=== PATIENT | male | born 1980 | race Caucasian/White ===

== ENCOUNTER 2018-02-10 17:50 | Inpatient (IN) | payer OTHER ==
[~2018-02-10] VITALS: Ht 182.9 cm; Wt 80.3 kg
--- NOTE | 2018-02-10 19:07 | NUR ---
PATIENT DIRECT ADMIT FOR DR HICKMAN. IN TO ROOM TO CHECK PATIENT IN. PATIENT APPEARS IN NO DISTRESS. BREATHING EVEN/UNLABORED. PATIENT A&O. PATIENT REPORT RUQ ABD PAIN STARTED THIS AM. SUDDEN ONSET OF PAIN THAT WOKE HIM UP AT ABOUT 4 AM.PAIN IS CONSTANT WITH NO RADIATION. REPORT PAIN 01/20. DENIES N/V/D. LAST BM THIS AM. BOWEL TONE ACTIVE IN ALL 4 QUADRANTS. RUQ TENDER TO PALPATION. PATIENT DENIES ANY SIMILAR SYMPTOMS IN THE PAST. REPORTS NO ALLERGIES, HX OF HERNIA SURGERY AND MINISCUS REPAIR IN THE PAST. PATIENT APPEARS IN NO DISTRESS. IV STARTED AND FLUID (LR) STARTED AT 125ML/HR. INFORMED PATIENT ABOUT PAIN MED AVAILABILITY, PATIENT DENIES THE NEED FOR IT AT THIS TIME. CALL LIGHT IN REACH.
--- NOTE | 2018-02-10 19:20 | NUR ---
RECEIVED BEDSIDE REPORT FROM MADAN RN. PT IN BED WITH AT BEDSIDE. REPORTS 5/10 PAIN RUQ. REPORTS THIS TOLERABLE AND REFUSES PAIN MEDICATION AT THIS TIME. LR @ [address] CALL LIGHT WITHIN REACH, REOPRTS NO OTHER NEEDS AT THIS TIME
--- NOTE | 2018-02-10 21:13 | NUR ---
VITALS DONE AND CHARTED. I&OS CHECKING LATER, HE HAS NOT GONE SINCE HE CAME TO THE FLOOR. BEDSIDE TABLE AND CALL LIGHT WITHIN REACH.
--- NOTE | 2018-02-10 22:00 | NUR ---
ASSESSMENT COMPLETED, MEDICATION ADMINISTERED. PT REPORTS PAIN 5/10 TOLERABLE AT THIS TIME AND REFUSES PAIN MEDICATION. REPOSITIONED FOR COMFORT. LUNGS CLEAR, BOWEL TONES ACTIVE, HEART SOUNDS REGULAR, PULSES +3 X4, PT A/O. NO N/V. CALL LIGHT WITHIN REACH. REPORTS NOO THER NEEDS AT THIS TIME.
--- NOTE | 2018-02-11 00:01 | NUR ---
PT IS PLACED ON NPO STATUS AT THIS TIME. EDUCATION COMPLETED. CALL LIGHT WITHIN REACH.
--- NOTE | 2018-02-11 02:15 | NUR ---
VITALS AND I&OS DONE AND CHARTED. BEDSIDE TABLE AND CALL LIGHT WITHIN REACH.
--- NOTE | 2018-02-11 02:35 | NUR ---
ASSESSMENT COMPLETED. NO CHANGES. NPO AT THIS TIME. CALL LIGHT WITHIN REACH. PAIN 5/10- REPORTED TOLERABLE.
--- NOTE | 2018-02-11 04:00 | NUR ---
PT ON AND OFF SLEEPING. AT BEDSIDE. REPORTS PAIN 5/10. NO NEEDS AT THIS TIME. CALL LIGHT WITHIN REACH. LR @ 85.
--- NOTE | 2018-02-11 05:41 | NUR ---
VITALS AND I&OS DONE AND CHARTED. GARBAGES EMPTIED. BEDSIDE TABLE AND CALL LIGHT WITHIN REACH. PT COMPLAINS OF IV HURTING. I INFORMED HIS RN RADHIKA.
--- NOTE | 2018-02-11 07:41 | NUR ---
RECEIVED BEDSIDE REPORT FROM RADHIKA TRUONG. ALL QUESTIONS ANSWERED. WHITE BOARD UPDATED. SIGNIFICANT OTHER AT BEDSIDE. PAIN 5/10 IN ABDOMEN. LR INFUSING AT 85ML/HR.
--- NOTE | 2018-02-11 07:54 | NUR ---
PT PREPARING FOR PROCEDURE NOW. NPO SINCE MIDNIGHT. PATIENT COMPLETING WIPE DOWN NOW INDEPENDENTLY. WILL ADMINISTER HEPARIN AND PEPCID THIS MORNING PRIOR TO SURGERY.
--- NOTE | 2018-02-11 08:15 | NUR ---
PATIENT LEAVING FOR SURGERY SOON.
--- NOTE | 2018-02-11 10:46 | NUR ---
02/11/18 Tristen6 Sumi Obrien 1033 PT ARRIVED WITH MASK ON AT 6L. PT MOVED ARMS AND ICHING NOSE. PT REACTIVE, RESP EVEN AND UNLABORED. PT REORINETED TO PACU.
--- NOTE | 2018-02-11 10:55 | HP ---
[facility] [address] [place], [place] [address] Signed ADMISSION DATE: 02/10/2018 REASON FOR ADMISSION: Acute calculous cholecystitis. 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 Approximately 4 in the morning, he had rather severe right subcostal pain that was unrelenting and worsened over time. He was thoroughly evaluated by [facility], who had suspicions of cholecystitis. Lab studies were obtained and an ultrasound was obtained later in the day. This confirmed a single large gallstones and findings consistent with acute calculous cholecystitis. On that basis, I was called and he is admitted directly to the hospital for consideration of further management and care. PAST MEDICAL HISTORY: Rather unremarkable. He takes no medications on a daily basis and has never had abdominal surgery. He has had inguinal hernia repair in the past and lower extremity orthopedic surgery, but no implantation of joint. SOCIAL HISTORY: He is and has a grade school age children. REVIEW OF SYSTEMS: He denies any shortness of breath or chest pain. He has had no dysphagia or dysuria. He has not eaten or drank anything since this morning. He is reasonably comfortable while lying in bed, but quite uncomfortable up and about and walking. PHYSICAL EXAMINATION: GENERAL: Well-developed and well-nourished white man, who looks healthy overall. HEENT: Mucous membranes are slightly dry. Trachea is midline. CHEST: Clear. HEART: Regular without murmur. ABDOMEN: Nondistended and reasonably flat. There is tenderness in right subcostal area, but no mass. There is no ascites. EXTREMITIES: Show no clubbing, cyanosis, or edema. LABORATORY DATA: Show a normal Chem profile. Lipase is pending. CBC shows a white count of 6.5, Electronically Signed By: DILIP HCIKMAN MD 02/11/18 1055 PATIENT NAME: MARIA GUADALUPE FELDER HISTORY AND PHYSICAL DATE OF : 76 REPORT #: [id number] PHYSICIAN: DILIP HICKMAN MD PCP: GRACE COCHRAN PA-C REPORT IS CONFIDENTIAL AND NOT TO BE RELEASED WITHOUT AUTHORIZATION [facility] [address] [place], [place] [address] Signed hematocrit 50.6, platelets 236,000. Urinalysis is normal. I have reviewed the images from the ultrasound and reviewed the report as well. There is a single large somewhat oblong gallstone, visible thickening of the gallbladder wall was noted. It is not excessively thick, however. ASSESSMENT: He has clinical evidence of acute cholecystitis. Ultrasound confirming gallstones. There is no sign of liver enzyme elevation. I discussed with him and his the pathophysiology of this problem and recommendation of treatment to include cholecystectomy preferred by laparoscopic approach. The risks of bleeding, infection, bile duct injury, need for open procedure and other unforeseen complications were reviewed in detail. He understands and wished to proceed. For tonight, I will pursue intravenous fluid resuscitation, parenteral pain medication. We will allow some clear liquids for comfort sake, but no oral intake. Otherwise, so as to avoid instigating any further episode of biliary colic or worsening of his symptoms of cholecystitis. He has been given gallbladder owners manual and so forth and he and his wished to proceed as we have described. MD JAMIE Cochran/FLORENCIO /[id number] cc: Grace Cochran PA-C Copies: GRACE COCHRAN PA-C ~ Electronically Signed By: DILIP HICKMAN MD 02/11/18 1055 PATIENT NAME: MARIA GUADALUPE FELDER HISTORY AND PHYSICAL DATE OF : 76 REPORT #: [id number] PHYSICIAN: DILIP HICKMAN MD PCP: GRACE COCHRAN PA-C REPORT IS CONFIDENTIAL AND NOT TO BE RELEASED WITHOUT AUTHORIZATION
--- NOTE | 2018-02-11 11:50 | NUR ---
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 IN ROOM, PATIENT IN GOOD SPIRITS AND JOKING WITH CNAS. PATIENT HAS NOT ORDERED LAUNCH, AND STATES, "I'M THINKING ABOUT IT" JUICE AND FRESH ICEWATER GIVEN. CALL LIGHT INRE ACH NO OTHER NEEDS
[2018-02-11] MEDS ORDERED: IBUPROFEN600 MG PO (13:19)
[2018-02-11] MEDS ORDERED: MAPAP325 MG PO (13:20)
[2018-02-11] MEDS ORDERED: OXYCODON-ACETA1 EAC2 PO (13:20)
--- NOTE | 2018-02-12 16:00 | OR ---
[facility] [address] [place], [place] [address] Signed DATE OF OPERATION: 02/11/2018 SURGEON: Dilip Hickman MD PREOPERATIVE DIAGNOSIS: Acute calculous cholecystitis. POSTOPERATIVE DIAGNOSES: Acute calculous cholecystitis and pigmented papilliform skin lesion at umbilicus. PROCEDURES: 1. Laparoscopic cholecystectomy with intraoperative cholangiogram. 2. Surgeon-directed fluoroscopy. 3. Excision of umbilical skin lesion. ANESTHESIA: General endotracheal ( Siddhartha Gustafson CRNA) and local 0.25% Marcaine with epinephrine. INDICATION: This 37-year-old white man presented to [facility] yesterday with at least 12 hours of persistent right subcostal pain. He has been having problems for the past 4 weeks, one where another including vague abdominal pain and fatigue. Evaluation yesterday included a CBC and a Chem profile, which were normal, but an ultrasound of the gallbladder was performed confirming acute calculous cholecystitis. He has been fluid resuscitated given intravenous antibiotics, parenteral pain medication so forth and is now to undergo cholecystectomy preferred by laparoscopic approach. The risks of bleeding, infection, bile duct injury, need for other indicated procedures, failure to cure the problem, and other unforeseen complications were reviewed in detail. He understands and wished to proceed. FINDINGS: The gallbladder was subacutely inflamed. It was distended. There was a slightly enlarged pericholecystic lymph node noted. The liver itself was normal. Cholangiogram was normal. The gallbladder once opened showed a single large gallstone that was dark in color and chronic and subacute inflammatory change of the mucosa. DESCRIPTION OF PROCEDURE: The patient was brought to the operating room, given a general endotracheal anesthetic. Preoperative antibiotic Ancef had been given previously. Subcutaneous insulin had been administered and sequential compression device stockings were used. After satisfactory Electronically Signed By: DILIP HICKMAN MD 02/12/[address] [facility] PATIENT NAME: MARIA GUADALUPE FELDER OPERATIVE REPORT DATE OF : 76 REPORT #: [id number] PHYSICIAN: DILIP HICKMAN MD PCP: GRACE COCHRAN PA-C REPORT IS CONFIDENTIAL AND NOT TO BE RELEASED WITHOUT AUTHORIZATION [facility] [address] [place], [place] [address] Signed general endotracheal anesthesia, the abdomen was prepared with a chlorhexidine solution and draped sterilely. An infraumbilical incision was made. In the region of the infraumbilical area, was a pigmented papillary lesion less than half a centimeter in size, but nevertheless of note. This was excised and passed for pathology. An incision was made in usual configuration. Dissection carried through the subcutaneous tissue and blunt dissection undertaken and ultimately the abdomen entered using open Carolina cannula technique. Pneumoperitoneum was achieved to a level of 14 mmHg with carbon dioxide gas through the Carolina cannula. A 30-degree angled laparoscope was passed into the abdomen and intraabdominal inspection undertaken showing a distended acutely inflamed gallbladder. The liver appeared normal. Three additional trocars were placed in usual configuration in the subxiphoid, right midclavicular, and right anterior axillary line. The gallbladder was elevated cephalad and retracted laterally and using blunt and electrocautery dissection, the triangle of Calot was dissected free. A somewhat enlarged pericholecystic lymph node was noted. This was mostly a sign of inflammation. It was certainly not neoplastic in appearance. When the cystic duct was fully dissected free, a clip was applied across the gallbladder cystic duct junction. A transverse choledochotomy was made in the cystic duct. Using an Kidd type cholangiocatheter, intraoperative cholangiography was undertaken showing free flow of contrast in the biliary tree with prompt emptying into the duodenum. Retrograde filling of the proximal biliary tree was notably normal. The catheter was removed and the cystic duct was triply clipped and divided. The gallbladder was dissected free in a retrograde fashion using electrocautery. The gallbladder was not entered, but the gallbladder was placed in an endobag just as same and withdrawn through the infraumbilical port site under direct visualization without problem. The gallbladder was opened on the back table and found to have a single large dark somewhat oval gallstone and subacute inflammation of the mucosa. There was no sign of neoplasm. Irrigation was undertaken in subhepatic space. Excess irrigation fluid was suctioned free. The trocars were removed under direct visualization showing no sign of bleeding. The infraumbilical fascial incision was reapproximated with interrupted 0 Vicryl suture. All wounds were copiously irrigated with saline solution and 10 mL of 0.25% Marcaine with epinephrine was injected locally into the trocar sites. The skin was closed with interrupted 3-0 Vicryl. Steri-Strips were applied. The patient was ultimately extubated and transferred to recovery in good condition having suffered no complications. Sponge, needle, and instrument counts reported as correct x3. Dilip Hickman MD Electronically Signed By: DILIP HICKMAN MD 02/12/18 1600 PATIENT NAME: MARIA GUADALUPE FELDER OPERATIVE REPORT DATE OF : 76 REPORT #: [id number] PHYSICIAN: DILIP HICKMAN MD PCP: GRACE COCHRAN PA-C REPORT IS CONFIDENTIAL AND NOT TO BE RELEASED WITHOUT AUTHORIZATION [facility] [address] [facility] [address] Signed /FLORENCIO /[id number] cc: Grace Cochran PA-C Copies: GRACE COCHRAN PA-C ~ Electronically Signed By: DILIP HICKMAN MD 02/12/18 1600 PATIENT NAME: MARIA GUADALUPE FELDER OPERATIVE REPORT DATE OF : 76 REPORT #: [id number] PHYSICIAN: DILIP HICKMAN MD PCP: GRACE COCHRAN PA-C REPORT IS CONFIDENTIAL AND NOT TO BE RELEASED WITHOUT AUTHORIZATION
== END 2018-02-11 13:45 | disposition home or self-care (01) | DRG 419 ==
LOC: MS 17:50
PROVIDERS: ADMIT Surgery
PROC: BF101ZZ Fluoroscopy of Bile Ducts using Low Osmolar Contrast (ICD-10-PCS; 2018-02-11)
PROC: 0HB7XZZ Excision of Abdomen Skin, External Approach (ICD-10-PCS; 2018-02-11)
PROC: 0FT44ZZ Resection of Gallbladder, Percutaneous Endoscopic Approach (ICD-10-PCS; principal; 2018-02-11 10:00)
DX: K80.12 Calculus of gallbladder with acute and chronic cholecystitis without obstruction (principal); L98.8 Other specified disorders of the skin and subcutaneous tissue
CPT/HCPCS: 00790; 74300; J0690; J1644; J1885; J2405; J2704; J3010; J7120; Q9967

== ENCOUNTER 2025-07-19 06:51 | Day surgery (SDC) | payer OTHER ==
[~2025-07-19] VITALS: Ht 182.9 cm; Wt 84.0 kg
[~2025-07-19 06:51] MED LIST: IBUPROFEN600 MG PO; LACTATED RINGER'S 1,000 ML IV SCH; MAPAP325 MG PO; OXYCODON-ACETA1 EAC2 PO
[2025-07-19] MEDS ORDERED: LIDOCAINE HCL 1% 5 ML SDV INJ ONE (07:00)
[2025-07-19] MEDS ORDERED: IBLOOD GLUCOSE TEST STRIP 1 EA TEST VI PRN (07:00)
[2025-07-19 07:01] VITALS: BP 131/79
[2025-07-19] MEDS ORDERED: LIDOCAINE HCL 2% 5 ML SDV ONE (10:35)
--- NOTE | 2025-07-19 10:52 | NUR ---
07/19/25 1052 Swati Ryan 1038 PT ARRIVED IN PACU SLEEPY. ABD SOFT. 1050 PT AWAKE AND TALKING TO STAFF. NO C/O'S.
[2025-07-19 10:59] VITALS: BP 129/95
--- NOTE | 2025-07-23 12:15 | PATH ---
[facility] [address] [facility] [place], [place] [address] Signed SPECIMEN(S): A PROXIMAL ASCENDING COLON POLYP SPECIMEN(S): B RANDOM TRANSVERSE BIOPSY SPECIMEN(S): C RANDOM TRANSVERSE BIOPSY SPECIMEN(S): D HEPATIC FLEXURE COLON POLYP SPECIMEN(S): E DESCENDING COLON BIOPSY SPECIMEN SOURCE: A. PROXIMAL ASCENDING COLON POLYP B. RANDOM TRANSVERSE BIOPSY C. RANDOM TRANSVERSE BIOPSY D. HEPATIC FLEXURE COLON POLYP E. DESCENDING COLON BIOPSY CLINICAL HISTORY: Diarrhea, post-polyps A) polyp, B) right transverse biopsy, C) left transverse biopsy, D) polyp, E) biopsy FINAL PATHOLOGIC DIAGNOSIS: A. Proximal ascending colon polyp: - Tubular adenoma (two fragments). B. Random transverse biopsy (right side): - Benign colonic mucosa, negative for pathologic inflammation. C. Random transverse biopsy (left side): - Benign colonic mucosa, negative for pathologic inflammation. D. Hepatic flexure colon polyp: - Tubular adenoma (two fragments). E. Descending colon biopsy: - Hyperplastic polyp (multiple fragments). [facility] MICROSCOPIC EXAMINATION: Histologic sections of all submitted blocks are examined by light microscopy. These findings, together with the gross examination, support the pathologic diagnosis. GROSS DESCRIPTION: A. The specimen, labeled and designated "Ainsley proximal ascending colon polyp," is received in formalin and consists of three eldridge soft tissue fragments, ranging from 0.2-0.3 cm. Entirely submitted in (A1). PATIENT NAME: MARIA GUADALUPE FELDER PATHOLOGY DATE OF : 76 REPORT #: [id number] PHYSICIAN: DAY RAI PCP: BRANDON GARCIA PA-C REPORT IS CONFIDENTIAL AND NOT TO BE RELEASED WITHOUT AUTHORIZATION [facility] [address] [place], [place] [address] Signed B. The specimen, labeled and designated "Ainsley, random transverse biopsy (right side)," is received in formalin and consists of four eldridge soft tissue fragments, ranging from 0.1-0.3 cm. Entirely submitted in (B1). C. The specimen, labeled and designated "Ainsley, random transverse biopsy (left side)," is received in formalin and consists of multiple eldridge soft tissue fragments, 0.1-0.3 cm. Entirely submitted in (C1). D. The specimen, labeled and designated "Ainsley, hepatic flexure colon polyp," is received in formalin and consists of two eldridge soft tissue fragments, ranging from 0.1-0.2 cm. Entirely submitted in (D1). E. The specimen, labeled and designated "Ainsley, descending colon biopsy," is received in formalin and consists of multiple eldridge soft tissue fragments, 0.1-0.4 cm. Entirely submitted in (E1). AB (under the direct supervision of a pathologist) The Gross Description was prepared using a voice recognition system. The report was reviewed for accuracy; however, sound-alike word errors, addition and/or deletions may occur. If there is any question about this report, please contact Client Services. ADDITIONAL NOTES: Immunohistochemical and/or in situ hybridization studies if performed in this case included appropriate positive controls that reacted as expected. This test was developed and its performance characteristics determined by [employer] [facility]. It has not been cleared or approved by the U.S. Food and Drug Administration. The FDA has determined that such clearance or approval is not necessary. This test is used for clinical purposes. It should not be regarded as investigational or for research. [facility] is certified under the Clinical Laboratory Improvement Amendments of 1988 (CLIA) as qualified to perform high complexity clinical laboratory testing. PERFORMING LABORATORY: Technical component was performed by [facility], [facility] [place] [address] (CLIA# [id number]). Professional interpretation was performed by [facility] [place] [facility] - [address] [place] [address] (CLIA#: [id number]). Diagnostician: Mario Almazan MD PATIENT NAME: MARIA GUADALUPE FELDER PATHOLOGY DATE OF : 76 REPORT #: [id number] PHYSICIAN: DAY PATHOLOGY PCP: BRANDON GARCIA PA-C REPORT IS CONFIDENTIAL AND NOT TO BE RELEASED WITHOUT AUTHORIZATION [address] [place] [address] Signed Pathologist Electronically Signed 07/23/2025 Copies: ~ PATIENT NAME: MARIA GUADALUPE FELDER PATHOLOGY DATE OF : [birth year] REPORT #: [id number] PHYSICIAN: DAY RAI PCP: BRANDON GARCIA PA-C REPORT IS CONFIDENTIAL AND NOT TO BE RELEASED WITHOUT AUTHORIZATION
== END 2025-07-19 11:08 | disposition home or self-care (01) ==
LOC: DS 06:51
PROVIDERS: ATTEND Surgery
PROC: 0DBL8ZZ Excision of Transverse Colon, Via Natural or Artificial Opening Endoscopic (ICD-10-PCS; 2025-07-19)
PROC: 0DBK8ZZ Excision of Ascending Colon, Via Natural or Artificial Opening Endoscopic (ICD-10-PCS; principal; 2025-07-19 08:10)
DX: R19.7 Diarrhea, unspecified (principal); D12.2 Benign neoplasm of ascending colon; D12.3 Benign neoplasm of transverse colon; K63.5 Polyp of colon; Z90.49 Acquired absence of other specified parts of digestive tract
CPT/HCPCS: 00812; J2003; J2704; J7121

== ENCOUNTER 2025-08-15 05:45 | Day surgery (SDC) | payer OTHER ==
[~2025-08-15] VITALS: Ht 182.9 cm; Wt 84.0 kg
[2025-08-15 06:05] VITALS: BP 138/86
[2025-08-15] MEDS ORDERED: COLESTIPOL HCL1 GM PO (06:07)
[2025-08-15] MEDS ORDERED: CEPHALEXIN500 M1 PO (06:16)
[2025-08-15] MEDS ORDERED: LIDOCAINE HCL 2% 20 ML MDV ONE (06:29)
[2025-08-15] MEDS ORDERED: DEXAMETHASONE SOD PHOS 4 MG/ML VIAL ONE ×2 (06:29→06:53)
[2025-08-15] MEDS ORDERED: Ropivacaine HCl 0.5% 30 ML VIAL ONE (06:29)
[2025-08-15] MEDS ORDERED: KETOROLAC TROMETHAMINE 30 MG/ML VIAL ONE (06:53)
[2025-08-15] MEDS ORDERED: fentaNYL citrate 100 MCG/2 ML VIAL ONE (06:53)
[2025-08-15] MEDS ORDERED: LIDOCAINE HCL 2% 5 ML SDV ONE (06:53)
[2025-08-15] MEDS ORDERED: ACETAMINOPHEN 1,000 MG/100 ML VIAL ONE (06:54)
[2025-08-15] MEDS ORDERED: CEFAZOLIN SODIUM 1 GM in SODIUM CHLORIDE 0.9% 100 ML IV SCH (07:00)
[2025-08-15] MEDS ORDERED: IBLOOD GLUCOSE TEST STRIP 1 EA TEST VI PRN ×2 (07:00→09:00)
[2025-08-15] MEDS ORDERED: LIDOCAINE HCL 1% 5 ML SDV INJ ONE (07:00)
[2025-08-15] MEDS ORDERED: NALOXONE HCL 0.4 MG SYR IV PRN (09:00)
[2025-08-15] MEDS ORDERED: fentaNYL citrate 50 MCG/ML SDV IV PRN (09:00)
[2025-08-15 10:05] VITALS: BP 123/78
[2025-08-15] MEDS ORDERED: HYDROCODONE/ACETA 5/325 TAB PO PRN (10:15)
--- NOTE | 2025-08-15 10:23 | NUR ---
08/15/25 1023 Sheets,Sumi 0920 PT ARRIVED TO PACU ON RA AND IS ASLEEP. RESP EVEN AND UNLABORED. 0945 PT WAKES TO VERBAL STIMULI AND DENIES CONCERNS. HOB INCREASED. 0948 X-RAY AT BEDSIDE. 0951 MD AT BEDSIDE AND ALL QUESTIONS ANSWERED. PLAN OF CARE DISCUSSED. 1000 PT RETURNED TO DS WITH AT BEDSIDE AND REPORT GIVEN. MD IN ROOM TALKING TO PT AND . ALL QUESTIONS ANSWERED.
[2025-08-15 11:02] VITALS: BP 141/80
--- NOTE | 2025-08-15 13:21 | NUR ---
YOVANI 1000-PT BACK TO ROOM FROM PACU ON RA. RECEIVED REPORT FROM JACOB TRUONG. PT IS AWAKE. RESP EVEN AND UNLABORED. PT RATES PAIN 3/10. FANTASMA NAUSEA. PT HAS A BOOT IN PLACE ON RT FOOT. ICE PACK IN PLACE. PT DRINKING WATER AND EATING PUDDING. AT BEDSIDE. CALL LIGHT WITHIN REACH.
--- NOTE | 2025-08-15 13:22 | NUR ---
LE 1102-PT IS AWAKE. RESP EVEN AND UNLABORED. RATES PAIN 1/10. DENIES NAUSEA. PT HAS BOOT ON R FOOT AND ICE PACK IN PLACE. PT IS READY TO GO HOME. PT WILL GET DRESSED WTIH THE HELP OF HIS . CALL LIGHT WITHIN REACH.
[2025-08-15] MEDS ORDERED: SEVOFLURANE 250 ML BTL INH ONE (13:58)
--- NOTE | 2025-08-15 14:03 | NUR ---
LE 1110-WENT OVER DISCHARGE INSTRUCTIONS WITH PT AND . ALL QUESTIONS ANSWERED. LE 1115-PT USES CRUTCHES AND AMBULATES TO WHEELCHAIR. RIDE PROVIDED TO FRONT OF HOSPITAL WHERE RIDE WAS WAITING WITH THE CAR.
--- NOTE | 2025-08-20 16:41 | OR ---
[facility] [address] [place], [place] [address] Signed DATE OF OPERATION: 08/15/2025 SURGEON: Abelardo Francis DPM PREOPERATIVE DIAGNOSES: Hallux valgus, right foot; bunion, right foot. POSTOPERATIVE DIAGNOSES: Hallux valgus, right foot; bunion, right foot. VICE PRESIDENT OF BUSINESS DEVELOPMENT SURGEON: Theodore Cook DPM. ANESTHESIA: IV general with local block right foot. AIRCRAFT SKIN BURNISHER: Ronak Etienne. SPECIMEN TO PATHOLOGY: None. PROCEDURE: Lapidus type bunionectomy right foot with Sae type osteotomy right hallux. DESCRIPTION OF PROCEDURE: The patient was brought to the operating room and placed on the table in the supine position. Anesthesia Department administered IV sedation after which a local block was given to the right foot using a total of 10 mL 1:1 mixture, 2% lidocaine plain and 0.5% ropivacaine plain. The right leg and foot was then prepped and draped in the usual sterile manner and an Esmarch was used for hemostasis. Attention was initially directed to the dorsal/medial aspect right first MTPJ. A linear longitudinal incision was made approximately 1 cm medial to the extensor hallucis longus tendon and about 8 cm in length. The incision was initially full-thickness through the dermis then deepened through subcutaneous tissue using careful dissection and cautery as necessary for hemostasis. Once at the level of deep fascia and joint capsule, the incision was deepened to bone, reflecting soft tissues medially to expose the bony prominence to the first metatarsal head, which was then resected using power instrumentation removing 2 to 3 mm of bone. At this time, attention was directed to the Electronically Signed By: ABELARDO FRANCIS DPM 08/20/25 1641 PATIENT NAME: MARIA GUADALUPE FELDER OPERATIVE REPORT DATE OF : 76 REPORT #: [id number] PHYSICIAN: ABELARDO FRANCIS DPM PCP: BRANDON GARCIA PA-C REPORT IS CONFIDENTIAL AND NOT TO BE RELEASED WITHOUT AUTHORIZATION [facility] [address] [place], [place] [address] Signed first intermetatarsal space where a lateral release was performed. At this time the incision was extended past the first metatarsal-cuneiform joint. Initially full-thickness through the dermis then deepened through subcutaneous tissue using careful dissection and cautery as necessary for hemostasis. Once at the level of deep fascia the incision was extended to bone, reflecting soft tissues medially and laterally to expose the dorsal and medial aspects of the first metatarsal base and the first cuneiform. The joint distractor was then used to open the joint and prepare the joint for fusion. Using a combination of power and hand instrumentation cartilage was removed from both sides of the joint including a small amount of bone. The joint surfaces were then drilled to promote exposed bone and bleeding for bone fusion. The joint was then repositioned reducing the first inter-metatarsal angle and then secured temporarily with a K-wire. The position and alignment checked with intraoperative fluoroscopy. This was noted to be adequate and additional K-wires were then used to maintain the position. At this time, the five hole plate was used medially across the first metatarsal-cuneiform joint with a crossing screw centrally that extended from the medial aspect of the first metatarsal base proximal and lateral into the second cuneiform. Screw placement and position was checked with intraoperative fluoroscopy. The attention at this time was then redirected to the hallux position even with the hallux shifted as far as possible laterally, this still retained some hallux valgus position. Therefore, was deemed necessary at this point to perform a wedge osteotomy to the proximal phalanx base, right hallux. The osteotomy was then performed removing about 3 mm of bone medially and the osteotomy site then secured with a bone staple. The surgical site was then irrigated with copious amounts of normal saline and deep soft tissues then closed using 3-0 Vicryl, subcutaneous tissue closed using 4-0 Vicryl and skin closed using skin quinten. Dressing was then applied consisting of Adaptic, Betadine-soaked gauze, gauze 4x4s, Flexicon, and Coban for mild compression as well as to splint the position to the hallux. INTRAOPERATIVE COMPLICATIONS: None. ESTIMATED BLOOD LOSS: Less than 5 mL. A postoperative injection was utilized. This was 10 mL of a 9:1 mixture, 0.5% ropivacaine plain and dexamethasone phosphate 4 mg/mL. The patient tolerated the procedure and the anesthesia well and left the operating room with vital signs stable and vascular status intact to the right foot as evidenced by Electronically Signed By: ABELARDO FRANCIS DPM 08/20/25 1641 PATIENT NAME: MARIA GUADALUPE FELDER OPERATIVE REPORT DATE OF : 76 REPORT #: [id number] PHYSICIAN: ABELARDO FRANCIS DPM PCP: BRANDON GARCIA PA-C REPORT IS CONFIDENTIAL AND NOT TO BE RELEASED WITHOUT AUTHORIZATION [address] [address] Signed hyperemia with removal of the Esmarch. Abelardo Francis DPM DFB/MODL /[id number] Copies: ~ Electronically Signed By: ABELARDO FRANCIS DPM 08/20/25 1641 PATIENT NAME: MARIA GUADALUPE FELDER SHANKAR OPERATIVE REPORT DATE OF : 76 REPORT #: [id number] PHYSICIAN: ABELARDO FRANCIS DPM PCP: BRANDON GARCIA PA-C REPORT IS CONFIDENTIAL AND NOT TO BE RELEASED WITHOUT AUTHORIZATION
== END 2025-08-15 11:15 | disposition home or self-care (01) ==
LOC: DS 05:45
PROVIDERS: ATTEND Podiatrist Foot Surgery
PROC: 0QBQ0ZZ Excision of Right Toe Phalanx, Open Approach (ICD-10-PCS; 2025-08-15)
PROC: 0SGK04Z Fusion of Right Tarsometatarsal Joint with Internal Fixation Device, Open Approach (ICD-10-PCS; principal; 2025-08-15 07:00)
DX: M20.11 Hallux valgus (acquired), right foot (principal); M21.611 Bunion of right foot
CPT/HCPCS: 01480; 73620; 73630; C1713; C1889; J0131; J0690; J1100; J1885; J2003; J2405; J2704; J2795; J3010; J7121